=== PATIENT | female | born 1980 | race African-American/Black ===

== ENCOUNTER 2020-07-09 15:45 | Emergency (ER) | payer SELFPAY ==
[~2020-07-09] VITALS: Ht 157.5 cm; Wt 68.0 kg
[2020-07-09 16:16] VITALS: BP 116/67
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
[2020-07-09] MEDS ORDERED: AZITHROMYCIN 250 MG TABLET. PO ONE (16:30)
[2020-07-09] MEDS ORDERED: metroNIDAZOLE 500 MG TABLET PO ONE (16:30)
[2020-07-09] MEDS ORDERED: cefTRIAXone IM 250 MG VIAL IM ONE (16:30)
== END 2020-07-09 16:48 | disposition home or self-care (01) ==
LOC: ER 15:45
DX: Z20.2 Contact with and (suspected) exposure to infections with a predominantly sexual mode of transmission (principal)
CPT/HCPCS: 96372; 99283; J0696

== ENCOUNTER 2021-06-19 00:07 | Emergency (ER) | payer SELFPAY ==
[~2021-06-19] VITALS: Ht 157.5 cm; Wt 68.2 kg
[2021-06-19 01:29] LABS: BASO # 0.1 x10^3/uL (0.0-0.2); BASO % 1 % (0-3); EOS % 0 % (0-3); HEMATOCRIT 30.3 % (36.0-47.0); HEMOGLOBIN 9.4 g/dL (12.0-15.5); LYMPH # 1.8 x10^3/uL (1.0-4.8); LYMPH % 10 % (24-48); MEAN CORPUSCULAR HEMOGLOBIN 22 pg (25-35); MEAN CORPUSCULAR HGB CONC 31 g/dL (31-37); MEAN CORPUSCULAR VOLUME 71 fL (79-100); MONO # 0.7 x10^3/uL (0.0-1.1); MONO % 4 % (0-9); NEUT # 14.8 x10^3/uL (1.8-7.7); NEUT % 85 % (31-73); PLATELET COUNT 571 x10^3/uL (140-400); RED BLOOD COUNT 4.26 x10^6/uL (3.50-5.40); RED CELL DISTRIBUTION WIDTH 18.8 % (11.5-14.5); WHITE BLOOD COUNT 17.4 x10^3/uL (4.0-11.0)
[2021-06-19 01:32] LABS: ALBUMIN 3.5 g/dL (3.4-5.0); ALBUMIN/GLOBULIN RATIO 0.9 (1.0-1.7); CALCIUM 8.6 mg/dL (8.5-10.1); GFR 74.7; TOTAL BILIRUBIN 0.5 mg/dL (0.2-1.0); TOTAL PROTEIN 7.6 g/dL (6.4-8.2)
[2021-06-19 01:53] LABS: % BANDS 2 % (0-9); % LYMPHS 6 % (24-48); % MONOS 2 % (0-10); % SEGS 90 % (35-66); ANISOCYTOSIS SLIGHT; HYPOCHROMIA MOD; MICROCYTOSIS MOD; PLT ESTIMATE INCREASED (ADEQUATE)
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
[2021-06-19] MEDS ORDERED: CONTRAST GIVEN. MC PRN (02:15)
[2021-06-19] MEDS ORDERED: IOHEXOL 300 MG/ML 100ML VIAL. IV ONE (02:15)
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
[2021-06-19 06:26] VITALS: BP 112/74
== END 2021-06-19 06:45 | disposition home or self-care (01) ==
LOC: EEVIPCON 00:07 → ER 00:07
DX: S00.83XA Contusion of other part of head, initial encounter (principal); S10.93XA Contusion of unspecified part of neck, initial encounter; R23.3 Spontaneous ecchymoses; M25.532 Pain in left wrist; W22.8XXA Striking against or struck by other objects, initial encounter; Y93.89 Activity, other specified; Y92.89 Other specified places as the place of occurrence of the external cause; Y99.8 Other external cause status
CPT/HCPCS: 36415; 70450; 70486; 70496; 70498; 72125; 73120; 80053; 81025; 85007; 85025; 99285; Q9967